=== PATIENT | female | born 1965 | race Caucasian/White ===

== ENCOUNTER 2019-06-19 15:10 | Outpatient (CLI) | payer BC, SELFPAY ==
--- NOTE | 2019-06-19 15:26 | MM_ITS ---
WS: [id number] Bilateral screening digital mammogram, 06/19/2019 Clinical Data: SCREENING Comparison: 06/14/2017, 05/12/2016, 04/14/2015, 09/13/2012, 08/24/2010, 09/11/2008. Findings: The breast parenchymal pattern shows fat replacement. No spiculated masses or clustered calcification s are seen. There are no secondary signs of carcinoma. MM/[id number] Impression: 1. Negative bilateral mammogram unchanged. 2. Recommend annual screening mammograms. BIRADS: 0-Incomplete: Need additional imaging evaluation FOLLOW UP: 1 Year Follow-up The CAD amusement or recreation card checker was used.
== END 2019-06-19 15:11 | disposition home or self-care (01) ==
LOC: RADSHAW 15:18
PROVIDERS: Family Provider Family Medicine; PCP Family Medicine; Visit Provider Family Medicine
DX: Z12.31 Encounter for screening mammogram for malignant neoplasm of breast (principal)
CPT/HCPCS: 77067

== ENCOUNTER 2019-09-11 06:41 | Day surgery (SDC) | payer BC, SELFPAY ==
[2019-09-10 10:06] VITALS: BMI 33.3
[2019-09-11 07:12] VITALS: BP 139/72; PULSE 72; RESP 18; TEMP 36.3; O2SAT 99
[2019-09-11] MEDS: sodium chloride 0.9% 1,000 ML 30 ML IV (07:19)
--- NOTE | 2019-09-11 08:05 | ANES.PREANE2 ---
Pre-Anesthetic Assessment Pre-Anesthetic Assessment: Height/Weight: Height 1.65 m Weight 90.718 kg Temp Pulse Resp BP Pulse Ox 97.4 F L 72 18 139/72 99 09/11/19 07:12 09/11/19 07:12 09/11/19 07:12 09/11/19 07:12 09/11/19 07:12 Preop Diagnosis: screening Proposed Procedure: Operation Date: 09/11/19 08:10 Proposed Procedures p Colonoscopy(Not Applicable) - Héctor Hanson MD Was Beta Ling taken within 24 hours: N/A Last intake: Intake Last Liquid Date 09/10/19 Last Liquid Time 22:00 Last Solid Date 09/09/19 Last Solid Time 20:00 Social: Social History: No alcohol and No tobacco Exam: Pre-Anes Outpt Exam: alert, oriented x 3, clear to auscultation bilaterally and regular rate & rhythm Airway: Submandibular: WNL Cervical ROM: WNL MP: 2 History/ROS: No significant history except as noted Pulmonary: Pulmonary: None reported CV/HEM: CV/HEM: None reported : : None reported Hepatic: Hepatic: None reported GI: GI: None reported Metabolic: Metabolic: None reported Musc/skel: Musc/skel: None reported Neuropsych: Neuropsych: Anxiety Anesthetic Plan: ASA status: 2 Anesthesia: Anesthesia Evaluation and MAC Risk of > 500 ml blood loss (7ml/kg in children): No Meds/Allergies Current Medications: Current Medications Generic Name Dose Route Start Last Admin Trade Name Freq PRN Reason Stop Dose Admin Sodium Chloride 1,000 mls @ 30 ml s/hr 09/11/19 07:15 09/11/19 07:19 Sodium Chloride 0.9% IV 09/12/19 07:14 30 mls/hr .Q24H BOOKER Administration Data Anesthesia Cardiac Studies: No Data to Display
--- NOTE | 2019-09-11 08:34 | PM.OPSURHP ---
Providers/Chief Complaint Primary Care Provider: Estrellita Padilla MD Chief Complaint: Screening colonoscopy History of Present Illness The patient denies abdominal pain, nausea, vomiting, loss of appetite, change in bowel habits, blood in stools, weight loss, constipation or diarrhea. The patient has no family history of colon cancer and has never had a colonoscopy before. Review of Systems General: Reports: 10 or more systems reviewed and unremarkable except in HPI and below Medications/Allergies Home Medications Medication Instructions Recorded Confirmed Last Taken Type acyclovir 800 mg tablet 400 mg PO DAILY tab 06/12/19 09/11/19 09/09/19 History bupropion HCl 150 mg 24 hr tablet, 150 mg PO QAM 06/12/19 09/11/19 09/09/19 History extended release cyanocobalamin (vitamin B-12) 2,500 mcg PO DAILY 06/12/19 09/11/19 Unknown History 2,500 mcg tablet estradiol 1 mg tablet 1 mg PO DAILY 06/12/19 09/11/19 09/10/19 History multivitamin 1 cap PO DAILY 06/12/19 09/11/19 09/10/19 History naproxen 500 mg tablet 500 mg PO BID 06/12/19 09/10/19 Unknown History prednisolone acetate 1 % eye 1 drop OPHTHALMIC (EYE) DAILY ml 06/12/19 09/11/19 09/10/19 History drops,suspension venlafaxine 75 mg capsule,extended 75 mg PO DAILY 06/12/19 09/11/19 09/10/19 History release 24 hr Allergies Allergy/AdvReac Type Severity Reaction Status Date / Time hydrocodone AdvReac ADR-Itching Verified 06/12/19 15:08 PFSH PFSH: Medical History Depression Surgical History Status post colonoscopy (09/11/19) Repeat in 10 years Vital Signs Vitals Signs: Last Vital Signs Temp 97.4 F L 09/11/19 07:12 Pulse 72 09/11/19 07:12 Resp 18 09/11/19 07:12 BP 139/72 09/11/19 07:12 Pulse Ox 99 09/11/19 07:12 Weight: Weight last 48 hrs Weight 200 lb Physical Exam Narrative: EXAM NARRATIVE: HEENT: Normocephalic Eye: Sclera /conjunctiva normal Respiratory and chest: Bilateral clear breath sounds on auscultation Cardiovascular: Normal S1 and S2 heart sounds Abdomen: Soft to palpation Neurological: Oriented to place person and time Skin: Intact, no lesions appreciated on gross exam A&P Assessment and plan (1) Encounter for screening colonoscopy: The patient is scheduled for colonoscopy under MAC. The procedure risks and benefits, including infection, bleeding and bowel injury, has been explained to the patient, who has consented to the procedure. Information about the prep has been provided to the patient. Status: Resolved Coding Level of Care Code Acute Trailer Park Manager for Chg Fwd Diagnoses Encounter for screening colonoscopy Z12.11
[2019-09-11 08:35] VITALS: BP 125/82; PULSE 86; RESP 16; TEMP 36.3
[2019-09-11 08:50] VITALS: BP 135/83; PULSE 64; RESP 18; TEMP 36.4; O2SAT 98
== END 2019-09-11 09:10 | disposition home or self-care (01) ==
PROVIDERS: PCP Family Medicine; Visit Provider Surgery
PROC: 0DJD8ZZ Inspection of Lower Intestinal Tract, Via Natural or Artificial Opening Endoscopic (ICD-10-PCS; CPT 45378; principal; 2019-09-11 08:10)
DX: Z12.11 Encounter for screening for malignant neoplasm of colon (principal); F41.9 Anxiety disorder, unspecified; Z79.1 Long term (current) use of non-steroidal anti-inflammatories (NSAID); F32.9 Major depressive disorder, single episode, unspecified
CPT/HCPCS: 12345; 45378; J2704; J7030

== ENCOUNTER → 2019-11-01 15:11 | Outpatient (BNVA) | payer BC, SELFPAY | PROVIDERS: PCP Family Medicine; Visit Provider Dermatology | DX: R20.2 Paresthesia of skin (principal); L60.3 Nail dystrophy; L91.8 Other hypertrophic disorders of the skin; Z12.83 Encounter for screening for malignant neoplasm of skin | CPT/HCPCS: 99203 ==

== ENCOUNTER → 2019-11-20 14:16 | Outpatient (BNVA) | payer BC, SELFPAY | PROVIDERS: PCP Family Medicine; Visit Provider Dermatology | DX: L60.3 Nail dystrophy (principal); D48.9 Neoplasm of uncertain behavior, unspecified | CPT/HCPCS: 11755; 88304; 88305; 88311 ==

== ENCOUNTER → 2019-12-03 15:07 | Outpatient (BNVA) | payer BC, SELFPAY | PROVIDERS: PCP Family Medicine; Visit Provider Dermatology | DX: L60.3 Nail dystrophy (principal) | CPT/HCPCS: 99212; 99213 ==

== ENCOUNTER → 2020-01-02 07:38 | Outpatient (BNVA) | payer BC, SELFPAY | PROVIDERS: PCP Family Medicine; Visit Provider Dermatology | DX: L60.3 Nail dystrophy (principal); M79.645 Pain in left finger(s); L92.3 Foreign body granuloma of the skin and subcutaneous tissue | CPT/HCPCS: 11730; 88304 ==

== ENCOUNTER → 2020-04-29 14:25 | Outpatient (BNVA) | payer BC, SELFPAY | PROVIDERS: PCP Family Medicine; Visit Provider Nurse Practitioner Family | DX: Z20.828 Contact with and (suspected) exposure to other viral communicable diseases (principal) | CPT/HCPCS: 87426 ==

== ENCOUNTER 2020-07-04 09:00 | Outpatient (CLI) | payer BC, SELFPAY ==
--- NOTE | 2020-07-04 09:04 | MM_ITS ---
WS: [id number] Bilateral screening digital mammogram, 07/04/2020 Clinical Data: SCREENING Comparison: 06/19/2019, 06/14/2017, 05/12/2016, 04/14/2015, 09/13/2012, 08/24/2010, 09/11/2008. Findings: The breast parenchymal pattern shows fat replacement. No spiculated masses or clustered calcification s are seen. There are no secondary signs of carcinoma. MM/[id number] Impression: 1. Negative bilateral mammogram unchanged. 2. Recommend annual screening mammograms. BIRADS: 1-Negative FOLLOW UP: 1 Year Follow-up The CAD loading checker was used.
== END 2020-07-04 09:01 | disposition home or self-care (01) ==
LOC: RADSHAW 09:02
PROVIDERS: PCP Nurse Practitioner Family; Visit Provider Nurse Practitioner Family
DX: Z12.31 Encounter for screening mammogram for malignant neoplasm of breast (principal)
CPT/HCPCS: 77067

== ENCOUNTER → 2020-08-22 12:19 | Outpatient (BNVA) | payer BC, SELFPAY | PROVIDERS: PCP Nurse Practitioner Family; Visit Provider Surgery | DX: Z01.812 Encounter for preprocedural laboratory examination (principal); Z20.822 Contact with and (suspected) exposure to COVID-19 | CPT/HCPCS: 87635 ==

== ENCOUNTER 2020-08-27 07:13 | Day surgery (SDC) | payer BC, OTHER, SELFPAY ==
[2020-08-25 13:49] VITALS: BMI 38.9
--- NOTE | 2020-08-27 07:44 | ANES.PREANE2 ---
Pre-Anesthetic Assessment Pre-Anesthetic Assessment: Height/Weight: Height 1.65 m Weight 106.141 kg Preop Diagnosis: screening Proposed Procedure: Operation Date: 08/27/20 08:45 Proposed Procedures p EGD 78146 r11.10(Not Applicable) - Deepak Beck MD Familial anesthetic complications: occassional PONV Was Beta Ling taken within 24 hours: N/A Was Clonidine taken within 24 hours: N/A Last intake: > 8 hrs Social: Social History: No alcohol and No tobacco Exam: Pre-Anes Outpt Exam: alert, oriented x 3, clear to auscultation bilaterally and regular rate & rhythm Airway: Cervical ROM: WNL MP: 4 Dentition: Full Additional comments: large tongue GI: GI: GERD Metabolic: Metabolic: Morbid obesity Anesthetic Plan: ASA status: 2 Anesthesia: MAC Risk of > 500 ml blood loss (7ml/kg in children): No PFSH Anesthesia PFSH: Medical History Depression Dystrophia unguium Surgical History Status post colonoscopy (09/11/19) Repeat in 10 years Family History Mother Diabetes Father Diabetes Hypertension Other Dementia Denies family history of Anesthesia complication Bleeding disorder Cancer Social History Smoking and tobacco status: never smoked Alcohol intake: never History of recent travel: Yes Female Reproductive History: Date of last menstrual period: 08/22/13 Data Anesthesia Cardiac Studies: No Data to Display
[2020-08-27 08:45] VITALS: BP 149/98; PULSE 71; RESP 18; TEMP 36.6; O2SAT 98
[2020-08-27] MEDS: sodium chloride 0.9% 1,000 ML 30 ML IV (08:53)
--- NOTE | 2020-08-27 09:28 | P.HP_ITS ---
Same Day Surgery H&P Indication for Procedure/HPI DATE OF PROCEDURE: August 27, 2020 CHIEF COMPLAINT/INDICATIONFOR SURGICAL PROCEDURE: Food regurgitation and anorexia PREOP DIAGNOSIS: screening PLANNED PROCEDRUE: Operation Date: 08/27/20 08:45 Proposed Procedures p EGD 66137 r11.10(Not Applicable) - Deepak Beck MD This is a pleasant 55 years old female patient with history of class II obesity and a current BMI of 39.1 and weighs 235 pounds. Patient is referred to my practice to consider and discuss further weight loss surgery as an option for obesity management that she has been struggling with and affecting her daily life activities and quality of life. Obesity related comorbidities In the form of regurgitation and anorexia.History of facial and ophthalmic shingles and patient had recent eye surgery and she has been on corticosteroid eyedrops. In addition to history of dystrophia Unguium. Previous Bariatric surgery N/A Patient has been struggling with weight and has tried different modalities without obvious success including but not limited to Medical treatment in the form of Phntermine and made her very anxious she needed to be off that. Diet history: Patient reports that she has tried different types of diet, patient comes today showing interest in Bariatric surgery as a sustained option for obesity management Support system at home,Patient has been supporting spouse,were he comes today escorting Ms. Herman History of cancer screening age-appropriate Patient had screening colonoscopy last year September 2019and was reported as normal Interim history 08/27/2020 Patient comes today for planned diagnostic EGD ROS All systems have been reviewed negative except as per the above or per problem list Medications/Allergies* Home Medications Medication Instructions Recorded Confirmed Type acyclovir 800 mg tablet 400 mg PO DAILY tab 06/12/19 08/25/20 History bupropion HCl 150 mg 24 hr tablet, 150 mg PO QAM 06/12/19 08/25/20 History extended release cyanocobalamin (vitamin B-12) 2,500 mcg PO DAILY 06/12/19 08/25/20 History 2,500 mcg tablet estradiol 1 mg tablet 1 mg PO DAILY 06/12/19 08/25/20 History multivitamin 1 cap PO DAILY 06/12/19 08/25/20 History naproxen 500 mg tablet 500 mg PO BID 06/12/19 08/25/20 History prednisolone acetate 1 % eye 1 drop OPHTHALMIC (EYE) DAILY ml 06/12/19 08/25/20 History drops,suspension venlafaxine 75 mg capsule,extended 150 mg PO DAILY cap 07/17/20 08/25/20 History release 24 hr Allergies/Adverse Reactions Allergy/AdvReac Type Severity Reaction Status Date / Time hydrocodone AdvReac ADR-Itching Verified 08/27/20 09:32 Current Medications: Generic Name Dose Route Start Last Admin Trade Name Freq PRN Reason Stop Dose Admin Sodium Chloride 1,000 mls @ 30 mls/hr 08/27/20 08:00 08/27/20 08:53 Sodium Chloride 0.9% IV 08/28/20 07:59 30 mls/hr .Q24H BOOKER Administration Pertinent History/Comorbid Conditions* Medical History (Updated 07/19/20 @ 15:30 by Deepak Beck MD) Depression Dystrophia unguium Surgical History (Updated 09/11/19 @ 08:34 by Héctor Hanson MD) Status post colonoscopy (09/11/19) Repeat in 10 years Family History (Updated 06/12/20 @ 15:58 by Deandra Ling RN) Diabetes Mother Father Dementia Hypertension Father Denies family history of Anesthesia complication Bleeding disorder Cancer Social History Smoking and tobacco status: never smoked Alcohol intake: never History of recent travel: Yes Pertinent Exam Findings alert, oriented x 3, clear to auscultation bilaterally, regular rate & rhythm and procedure specific exam findings (Abdominal examination nontender nondistended soft obese) Recommendations Surgery/Procedure today (Diagnostic EGD) Other Plans: Plan of care; After thorough history and physical examination and reviewing the chart, plan to perform a diagnostic esophagogastroduodenoscopy with possible biopsy in the GI lab. I discussed with the patient in detail the risk,benefits,alternatives and indications.The risk of aspiration, bleeding, soft tissue injury, perforation of the stomach/esophagus and other potential concomitant complications were explained to the patient in details,aslo the potential need for Thoracic and or Abdominal surgery to repair any complications.The patient understood this well and did agree to proceed. Rationale was carefully and clearly discussed with the patient.Appropriate informed consent have been reviewed and signed All questions have been answered and all concerns have been addressed to patient's satisfaction. Coding Level of Care Code Acute Aircraft Quality Control Inspector for Kourtney Gomez
[2020-08-27 09:51] VITALS: BP 153/88; PULSE 71; RESP 18; TEMP 36.7; O2SAT 98
--- NOTE | 2020-08-27 09:54 | ANE.PACU2 ---
Inpatient post-anesthesia follow up: Airway intact: Yes Vital signs: Temperature 98.1 F Pulse Rate 71 Respiratory Rate 18 Blood Pressure 153/88 Pulse Oximetry 98 Oxygen Delivery Me thod Room Air Oxygen Flow Rate Fraction of Inspir ed Oxygen Hydration adequate: Yes Nausea and vomiting: No Pain level: 1 Mental status: Baseline
[2020-08-27 10:06] VITALS: BP 149/90; PULSE 70; RESP 18; TEMP 36.9; O2SAT 98
[2020-08-28 06:30] LABS: H. Pylori / CLO Test Negative
== END 2020-08-27 10:17 | disposition home or self-care (01) ==
PROVIDERS: PCP Nurse Practitioner Family; Visit Provider Surgery
PROC: 0DJ08ZZ Inspection of Upper Intestinal Tract, Via Natural or Artificial Opening Endoscopic (ICD-10-PCS; CPT 43235; principal; 2020-08-27 08:45)
DX: R11.10 Vomiting, unspecified (principal); R63.0 Anorexia; K29.70 Gastritis, unspecified, without bleeding; Z68.38 Body mass index [BMI] 38.0-38.9, adult; F32.9 Major depressive disorder, single episode, unspecified; Z82.49 Family history of ischemic heart disease and other diseases of the circulatory system; Z83.3 Family history of diabetes mellitus; E66.01 Morbid (severe) obesity due to excess calories; K21.9 Gastro-esophageal reflux disease without esophagitis
CPT/HCPCS: 43239; 87077; 96360; J7030

== ENCOUNTER 2020-12-18 11:07 | Outpatient (CLI) | payer BC, SELFPAY ==
[2020-12-18 11:30] LABS: Basophils # 0.1 10^3/uL (0.0-0.1); Basophils % 0.8 %; Eosinophils # 0.1 10^3/uL (0.0-0.8); Eosinophils % 2.2 %; Hematocrit 41.3 % (37.0-47.0); Hemoglobin 13.3 g/dL (11.5-15.3); Lymphocytes # 1.7 10^3/uL (0.8-4.8); Mean Corpuscular HGB Conc 32.2 g/dL (30.0-36.0); Mean Corpuscular Hemoglobin 30.8 pg (28.0-34.0); Mean Corpuscular Volume 95.6 fl (81-99); Mean Platelet Volume 9.4 fL (7.4-10.4); Monocytes # 0.4 10^3/uL (0.2-0.9); Monocytes % 6.5 %; Neutrophils # 4.08 10^3/uL (1.8-7.7); Neutrophils % 64.3 %; Nucleated Red Blood Cells % 0 %; Platelet Count 294 10^3/cmm (130-400); Red Blood Count 4.32 10^6/uL (4.1-5.3); Red Cell Distribution Width 13.1 % (12.1-15.1); White Blood Count 6.3 10^3/uL (4.0-10.0)
[2020-12-18 12:11] LABS: Calcium 9.1 mg/dL (8.5-10.5)
[2020-12-18 12:12] LABS: Parathyroid Hormone 62.7 pg/mL (15-65)
[2020-12-18 12:29] LABS: Alanine Aminotransferase 35 U/L (0-33); Albumin Level 4.3 g/dL (3.5-5.2); Alkaline Phosphatase 76 IU/L (35-105); Anion Gap 15.2 (5-19); Aspartate Amino Transferase 27 U/L (0-32); Blood Urea Nitrogen 12 mg/dL (6-20); Calcium 9.2 mg/dL (8.5-10.5); Carbon Dioxide 26 mmol/L (22-29); Chloride 101 mmol/L (98-107); Chol HDL Ratio 2.26 mg/dL (0.0-4.40); Cholesterol 183 mg/dL (0-200); Ferritin 193 ng/mL (15-150); Globulin 3.1 g/dL (1.3-4.6); Glomerular Filtration Rate 87.5 mL/min (90-130); Glucose 74 mg/dL (65-115); HDL Cholesterol 81 mg/dL (60-100); Iron 89 ug/dL (37-145); LDL Cholesterol Calculated 84 mg/dL (50-129); LDL HDL Ratio 1.04 RATIO (0.00-3.22); Magnesium 2.2 mg/dL (1.7-2.3); Osmolality Calculated 284 mOsm/kg (285-295); Percent Saturation 28.6 % (20-50); Phosphorus 2.7 mg/dL (2.5-4.5); Potassium 4.2 mmol/L (3.5-5.1); Sodium 138 mmol/L (136-145); Thyroid Stimulating Hormone 1.29 uIU/mL (0.27-4.20); Total Bilirubin 0.4 mg/dL (0.15-1.2); Total Iron Binding Capacity 311 mcg/dl; Total Protein 7.4 g/dL (6.6-8.7); Triglycerides 89 mg/dL (0-150); Unsaturated Iron Binding 222 ug/dL (112-347); Vitamin B12 920 pg/mL (232-1245)
[2020-12-18 12:31] LABS: Folate Level 19.1 ng/mL (4.8-37.3)
[2020-12-18 14:04] LABS: INR 0.99 (0.8-1.2)
== END 2020-12-18 11:08 | disposition home or self-care (01) ==
LOC: LAB 11:11
PROVIDERS: PCP Nurse Practitioner Family; Visit Provider Surgery
DX: E88.81 Metabolic syndrome and other insulin resistance (principal)
CPT/HCPCS: 80053; 80061; 82310; 82607; 82728; 82746; 83540; 83550; 83735; 83970; 84100; 84443; 85025; 85610; 87635

== ENCOUNTER 2020-12-23 14:27 | Observation (INO) | payer SELFPAY ==
[2020-12-19 08:33] VITALS: BMI 36.2
--- NOTE | 2020-12-19 08:55 | ANES.PREANE2 ---
Pre-Anesthetic Assessment Pre-Anesthetic Assessment: Height/Weight: Height 1.65 m Weight 98.883 kg Preop Diagnosis: screening Proposed Procedure: Operation Date: 12/23/20 12:05 Proposed Procedures p Laparoscopic Gastric Sleeve w/ EGD [id number] E66.01(Not Applicable) - Deepak Beck MD Was Beta Ling taken within 24 hours: N/A Was Clonidine taken within 24 hours: N/A Social: Social History: No alcohol and No tobacco Exam: Pre-Anes Outpt Exam: alert, oriented x 3, clear to auscultation bilaterally and regular rate & rhythm Airway: Submandibular: WNL Cervical ROM: WNL MP: 2 Dentition: Full GI: GI: GERD Metabolic: Metabolic: Morbid obesity Neuropsych: Neuropsych: Anxiety and Depression Anesthetic Plan: ASA status: 3 Anesthesia: General Other: PONV Risk of > 500 ml blood loss (7ml/kg in children): No PFSH Anesthesia PFSH: Medical History Depression Dystrophia unguium Gastric ulcer Surgical History History of hysterectomy History of lateral meniscus repair of right knee History of right cataract surgery (~06/2020) History of rotator cuff surgery (~1999) History of tubal ligation Status post colonoscopy (09/11/19) Repeat in 10 years Family History Mother Diabetes Father Diabetes Hypertension Other Dementia Denies family history of Anesthesia complication Bleeding disorder Cancer Social History Alcohol intake: never History of recent travel: Yes Female Reproductive History: Date of last menstrual period: 08/22/13 Data Anesthesia Cardiac Studies: No Data to Display
[2020-12-23] VITALS (20 sets, daily range): BP systolic 114–160; BP diastolic 53–117; PULSE 70–97; RESP 16–20; TEMP 36.2–37.3; O2SAT 91–100; BMI 36.1
[2020-12-23] MEDS: heparin 5,000 unit/mL INJ 1 mL 5000 UNIT SUBCUT (11:24)
[2020-12-23] MEDS: sodium chloride 0.9% 1,000 ML 999 ML IV (11:27)
[2020-12-23] MEDS: scopolamine 1.5 Patch 1 PATCH TRANSDERMA (11:43)
[2020-12-23] MEDS: pantoprazole 40 mg SDV IVP (11:44)
--- NOTE | 2020-12-23 11:47 | W.PM.OPSUD ---
Surgery/Procedure H&P Update DATE OF PROCEDURE: December 23, 2020 DATE H&P PERFORMED: 12/03/20 H&P UPDATE INFORMATION: I have reviewed H&P completed within last 30 days, I have examined patient prior to procedure and Changes to prior documentation as noted here CHANGES TO PREVIOUS DOCUMENTATION: Patient lost 12 pounds on liquid protein diet PREOP DIAGNOSIS: Obesity PRIMARY INDICATION FOR PROCEDURE: The same PLANNED PROCEDURE: Operation Date: 12/23/20 12:05 Proposed Procedures p Laparoscopic Gastric Sleeve w/ EGD [id number] E66.01(Not Applicable) - Deepak Beck MD
--- NOTE | 2020-12-23 11:51 | P.ANESUD_ITS ---
Pre-Anesthetic Update Pre-Anesthetic Assessment: Date of Surgery/Procedure: 12/23/20 Preop Joaquina gnosis: Obesity Proposed Procedure: Operation Date: 12/23/20 12:05 Proposed Procedures p Laparoscopic Gastric Sleeve w/ EGD [id number] E66.01(Not Applicable) - Deepak Beck MD Any changes to Pre-Anesthetic Assessment?: No Last Intake: Intake Last Liquid Date 12/23/20 Last Liquid Time 23:30 Last Solid Date 12/08/20 Last Solid Time 19:00 Vitals: Temperature 98.3 F 12/23/20 10:17 Temperature Source Temporal Artery S can 12/23/20 10:17 Pulse Rate 73 12/23/20 10:17 Pulse Rhythm 12/23/20 10:32 Pulse Strength 3+ Normal 12/23/20 10:32 Respiratory Rate 16 12/23/20 10:17 Blood Pressure 158/90 12/23/20 10:17 Blood Pressure Gracie n 112 12/23/20 10:17 Pulse Oximetry 97 12/23/20 10:17 Oxygen Delivery Me thod 12/23/20 10:32 Exam: Pre-Anes Outpt Exam: alert, oriented x 3 and clear to auscultation bilaterally Cardiac Studies: No Data to Display
[2020-12-23] MEDS: sodium chloride 0.9% 1,000 ML 30 ML IV (11:57)
--- NOTE | 2020-12-23 14:17 | P.OP_ITS ---
Operative Report Date of procedure: December 23, 2020 Pre-op Diagnosis: Obesity Post-op diagnosis: same Procedure Done: Laparoscopic vertical sleeve gastrectomy with intraoperative EGD Specimens removed/disposition: Subtotal gastrectomy with gastric sleeve, sutures marked proximal Surgeon: Deepak Beck E Learning Designer: Surgical techbi Lam and Merlyn Circulating nurses Lucie and Radha Anesthesia: General (public health internship is Juan Luis Maurice, Debbie and Zoila) Estimated blood loss (mL): 10 IV fluids (mL): 1,500 Urine output (mL): 500 Complications: No immediate complication Condition: stable Disposition: floor Brief History: Obesity Procedure: Patient was identified in holding area , appropriate pharmacologic DVT prophylaxis was given and preoperative IV fluid hydration, patient was then taken to the operating room where the patient was placed in supine position, intubated by anesthesia prophylactic antibiotics were given per protocol,Time- out was done verifying the patient's name/date of /planned procedure and destination after the procedure, all were in agreement.SCDs confirmed to be functioning, and beta ronnie protocol was confirmed. A Urbina catheter was inserted by the circulating nurse revealing clear urine. A foot board was applied to secure the patient while the patient is placed in reversed Trendelenburg, all pressure points were padded, and the patient was appropriately secured to the table, anesthesia was asked to rotate the table back and forth to verify that the patient is appropriately secured, and that was the case. The abdomen was prepped and draped under the usual sterile technique. A tra nsverse incision was made with a 15 blade scalpel approximately 15 cm below the xiphoid process and 3 cm left of the midline.A 5 mm optical trocar port was placed under direct vision into the peritoneal cavity without intial evidence of injury to peritoneal structures upon entry. The peritoneal cavity was insufflated with carbon dioxide gas up to 15 mmHg pressure.A 45? angle laparoscopy was placed through the port into the peritoneal cavity there was no significant blood, fluid, or evidence of intra-abdominal injury under direct visualization,Longer trocars were then used;a 12 mm trocar port was placed in the right epigastric region and a fourth 5 mm trocar port was placed in the mid epigastric region more caudad than and medial to the previous port. A 5 mm trocar port was placed in the left lateral flank and additional 5 mm trocar was inserted midway between the left lateral flank trocar and the initial 5 mm trocar. There after the index 5 mm trocar was switched to a 12 mm trocar u nder direct visualization after extending the skin incision. I lifted the omentum up to make sure there were no injuries encountered from the initial trocar insertion, the underlying transverse colon and small bowel viscera were normal. A subxiphoid stab incision was made and dissection into the peritoneum with 5 mm obturator. A grasping laparoscopic clamp was inserted through the incision cre ated and clamped to the right anastacia of the diaphragm to elevate The liver for the entirety of the case. All trocars inserted were long trocars due to the thicker layer of subcutaneous tissue that the patient has. Patient was then placed in the reversed Trendelenburg. Following this, the greater curvature of the stomach was freed from the omentum using the Enseal device.This division included the short gastric vessels proximally. This dissection was carried from approximately 4 cm-6 cm proximal to the pylorus and extending all the way up to the angle of Hiss. During this process the posterior aspect of the stomach was mobilized from the underlying peritoneum and the posterior aspect of the stomach was well exposed. With the greater curvature of the stomach exposed from within 4-6 cm of the pylorus and extending to the angle of Hiss, which also included the posterior stomach, a 40 Mexican standard template passed under direct vision down the esophagus, stomach, and into the first part of the duodenum by the anesthesia provider and under direct guidance and visualization by me,via the laparoscopy. Using the template 40 Mexican aligned along the lesser curvature of the stomach and all the way to the first part of the Duodenum,the 40 Mexican Bougie was used as a template the laparoscopic vertical gastric sleeve was performed starting from a point about 5 cm from the pylorus along the greater curvature.Using the [place] Laparoscopic ALESSIO linear cutting stapler with VoxPopMepath enforcement, a series of dian were used to transect the stomach in a vertical fashion along the left side of the template. Through the entire division of the stomach using the staplers,the template was always checked to be in good place and well aligned to the lesser curvature while dividing the stomach. This was carried all the way to the angle of Hiss.[place] 60 mm Green loads were used for the distal third of the stomach and Gold loads were used for the more proximal part of the stomach and then blue loads with reinforcement.All staplers were reinforced by Endopath. The staple line along the remaining tubularized stomach was tested for leaks and bleeding under direct vision as the 40 Mexican template was exchanged (and there was no evidence of blood on the tip of the template) by a standard diagnostic EGD via the mouth by my me after I scrubbed out, insufflation was achieved using CO2 gas and the staple line submerged under saline ,meanwhile a clamp was applied distally onto the end of the tubularized stomach to allow insufflation test for leak. There was no evidence of leak .There was adequate hemostasis along the staple line.EGD was taken out at this point after deflation of the tubularized stomach. The transected partial stomach, which included the greater curvature, was removed from the peritoneum through the first 12 mm trocar site, and was sent for permanent pathology.Prior to closure of the fascia. A final look laparoscopy identified no injuries or bleeding. Bilateral TAP (transversus abdominous plain peripheral nerve block )block using Exparel 20 mL Exparel 40 ml Normal saline 20 ml bupivacaine 0.25% 30 mL on each side injected 20 mL injected the port sites An interrupted #1 PDS suture on a granny needle suture passer was used to close the right epigastric and the other 12 mm trocar left of the midline fascial defects under direct visualization.The other trocars were removed under direct vision and no evidence of bleeding was identified. The pneumoperitoneum was decompressed.All skin incisions were irrigated with saline, then closed with dian, followed by application of sterile dressings.The patient was extubated and taken to the recovery room with normal vital signs. All counts of instruments,sponges and needles were completed at the end of the procedure I was present for the whole entire procedure
[2020-12-23] MEDS: ondansetron 2 mg/ML SDV 2 mL 4 MG IVP ×4 (14:29→21:56)
[2020-12-23] MEDS: HYDROmorphone 1 mg/mL INJ 1 mL 0.5 MG IVP ×2 (14:31→14:41)
[2020-12-23] MEDS: metoclopramide 5 mg/mL SDV 2 mL 10 MG IVP ×2 (14:35→14:40)
[2020-12-23] MEDS: famotidine 20 mg/2 mL INJ IVP (17:26)
[2020-12-23] MEDS: lactated ringers 1,000 ML 150 ML IV (17:32)
[2020-12-23] MEDS: morphine 4 mg/mL SDV 1 mL 2 MG IVP (22:31)
[2020-12-24] VITALS (10 sets, daily range): BP systolic 125–168; BP diastolic 78–88; PULSE 68–88; RESP 15–18; TEMP 36.6–37.3; O2SAT 93–95
[2020-12-24] MEDS: lactated ringers 1,000 ML 150 ML IV ×3 (00:30→17:02)
[2020-12-24 02:57] LABS: Hematocrit 37.5 % (37.0-47.0); Hemoglobin 12.1 g/dL (11.5-15.3)
[2020-12-24 03:22] LABS: Anion Gap 13.5 (5-19); Blood Urea Nitrogen 5 mg/dL (6-20); Carbon Dioxide 26 mmol/L (22-29); Chloride 99 mmol/L (98-107); Creatinine Clr Calc Pharmacy 151.1292; Glomerular Filtration Rate 129.1 mL/min (90-130); Glucose 117 mg/dL (65-115); Osmolality Calculated 276 mOsm/kg (285-295); Potassium 4.5 mmol/L (3.5-5.1); Sodium 134 mmol/L (136-145)
--- NOTE | 2020-12-24 04:23 | PC.NURSE ---
AMBULATION Ambulated short distance in the evening. Had some nausea after that walk. Now ambulated 200 ft with nurse and tolerated very well. Up to chair after ambulation
[2020-12-24] MEDS: heparin 5,000 unit/mL INJ 1 mL 5000 UNIT SUBCUT ×3 (05:59→21:37)
[2020-12-24] MEDS: famotidine 20 mg/2 mL INJ IVP ×2 (05:59→17:15)
--- NOTE | 2020-12-24 06:05 | PM.PN ---
Subjective Subjective: Interval history: Overall patient is doing well, does complain of some soreness at the incision sites. Adequate urine output, otherwise no acute events overnight Medications: Reviewed: Yes Vitals/I&O/Wt Last Vital Signs Temp 98.7 F 12/24/20 03:46 Pulse 88 12/24/20 03:46 Resp 16 12/24/20 03:46 BP 142/83 12/24/20 03:46 Pulse Ox 93 12/24/20 03:46 12/23/20 12/23/20 12/24/20 14:59 22:59 06:59 Intake Total 2860 / 2860 1000 / 3860 Output Total 1010 / 1010 2550 / 3560 600 / 4160 Balance 1850 / 1850 -2550 / -700 400 / -300 Weight last 48 hrs Weight 217 lb Weight 217 lb Physical Exam Narrative: EXAM NARRATIVE: Patient is conscious alert oriented X3 BMI 36.1 Head and neck examination PERRLA no masses no cervical lymphadenopathy no jaundice Cardiac examination audible S1-S2 no murmurs no gallops no arrhythmias Chest is clear bilateral,abscence of Rhonchi or wheezes,no surgical emphysema Abdomen nontender except at the incision sites nondistended soft no organomegaly guarding or rigidity/no signs of peritonitis. Dressing in place Extremities no cyanosis no clubbing no edema Urbina catheter in place with clear urine Urinary Catheter Management^: Urbina: Cath Placed During This Visit: yes Reason for Continuing Indwelling Catheter: Perioperative Use in Selected Surgeries Urinary Catheter Date of Insertion: 12/23/20 Urinary Catheter Time of Insertion: 12:30 Data : 12/24/20 02:49 12/24/20 02:49 A&P Assessment and plan (1) Status post laparoscopic sleeve gastrectomy: 55 years old female patient status post laparoscopic vertical sleeve gastrectomy 12/23/2020 Plan Keep n.p.o. till upper GI study is done, will follow on that once it is cleared we will start the patient on post bariatric surgery phase 1. Incentive spirometer every hour DC Urbina catheter Encourage ambulation A.m. labs are appropriate Assurance and education All questions have been answered and all concerns have been addressed to patient's satisfaction. Status: Acute Attestations Medical Necessity Statement*: Patient requiring inpatient hospitalization passing 2 midnights for perioperative bariatric surgery care Time Spent in Patient Care: (>than 50% of time spent in counselling and/or direct pt care on unit). Coding Level of Care Code Acute Bilingual Call Center Representative for Chg Fwd Diagnoses Status post laparoscopic sleeve gastrectomy Z98.84
[2020-12-24] MEDS: acetaminophen 1,000 MG/100 ML PIGGYBACK 400 MG IV ×2 (07:38→20:04)
--- NOTE | 2020-12-24 07:51 | ANE.PACU2 ---
Inpatient post-anesthesia follow up: Airway intact: Yes Vital signs: Temperature 98.7 F Pulse Rate 88 Respiratory Rate 16 Blood Pressure 142/83 Pulse Oximetry 93 Oxygen Delivery Me thod Room Air Oxygen Flow Rate 2 Fraction of Inspir ed Oxygen Hydration adequate: Yes Nausea and vomiting: No Pain level: 2 Mental status: Baseline
--- NOTE | 2020-12-24 08:00 | FL_ITS ---
WS: [id number] UPPER GI TECHNICAL: Single contrast limited upper GI with Gastrografin FLUOROSCOPY TIME: 1.5 minutes CLINICAL INFORMATION: Status Post Gastric Sleeve COMPARISON: None. FINDINGS: Status post recent gastric sleeve procedure. Normal filling of the gastric sleeve. No evidence of con trast leak. Normal filling of the duodenal C-loop. No other suspicious findings. FL/FL upper GI series [id number] IMPRESSION: Status post gastric sleeve with no evidence of contrast leak.
[2020-12-24] MEDS: promethazine 25 mg/mL SDV 1 mL 12.5 MG IM (09:45)
[2020-12-24] MEDS: diatrizoate meglumine 120 mL Sol PO (10:15)
[2020-12-24] MEDS: morphine 4 mg/mL SDV 1 mL 2 MG IVP ×3 (10:42→17:40)
[2020-12-25] VITALS (7 sets, daily range): BP systolic 144–168; BP diastolic 77–100; PULSE 67–81; RESP 17–20; TEMP 36.7–37.3; O2SAT 92–99
[2020-12-25] MEDS: lactated ringers 1,000 ML 100 ML IV (02:30)
[2020-12-25 02:35] LABS: Hematocrit 37.6 % (37.0-47.0); Hemoglobin 12.1 g/dL (11.5-15.3)
[2020-12-25 02:56] LABS: Anion Gap 11.9 (5-19); Blood Urea Nitrogen 6 mg/dL (6-20); Calcium 8.9 mg/dL (8.5-10.5); Carbon Dioxide 29 mmol/L (22-29); Chloride 103 mmol/L (98-107); Creatinine Clr Calc Pharmacy 151.1292; Glomerular Filtration Rate 129.1 mL/min (90-130); Glucose 104 mg/dL (65-115); Osmolality Calculated 288 mOsm/kg (285-295); Potassium 3.9 mmol/L (3.5-5.1); Sodium 140 mmol/L (136-145)
[2020-12-25] MEDS: diphenhydrAMINE 50 mg/mL SDV 1mL 12.5 MG IVP (04:13)
[2020-12-25] MEDS: acetaminophen 1,000 MG/100 ML PIGGYBACK 400 MG IV (04:14)
[2020-12-25] MEDS: oxyCODONE 5 mg IR Tab/Cap PO ×2 (04:15→11:29)
[2020-12-25] MEDS: famotidine 20 mg/2 mL INJ IVP (05:56)
[2020-12-25] MEDS: heparin 5,000 unit/mL INJ 1 mL 5000 UNIT SUBCUT ×2 (06:00→15:38)
--- NOTE | 2020-12-25 07:38 | PM.PN ---
Subjective Subjective: Interval history: Patient overall feels better and has been having her pain under control with oral pain medications. No acute events overnight. Adequate urine output. Blood work is appropriate. Medications: Reviewed: Yes Vitals/I&O/Wt Last Vital Signs Temp 99.2 F 12/25/20 04:00 Pulse 75 12/25/20 05:53 Resp 20 H 12/25/20 04:15 BP 156/82 12/25/20 04:00 Pulse Ox 95 12/25/20 04:00 12/24/20 12/25/20 12/25/20 22:59 06:59 14:59 Intake Total 1100 / 2200 1220 / 3420 Balance 1100 / 2200 1220 / 3420 Weight last 48 hrs Weight 217 lb Weight 217 lb Physical Exam Narrative: EXAM NARRATIVE: Patient is conscious alert oriented X3 BMI 36.1 Head and neck examination PERRLA no masses no cervical lymphadenopathy no jaundice Cardiac examination audible S1-S2 no murmurs no gallops no arrhythmias Chest is clear bilateral,abscence of Rhonchi or wheezes,no surgical emphysema Abdomen nontender except at the incision sites nondistended soft no organomegaly guarding or rigidity/no signs of peritonitis. Skin dian in place Extremities no cyanosis no clubbing no edema Urinary Catheter Management^: Urbina: Cath Placed During This Visit: yes Reason for Continuing Indwelling Catheter: Perioperative Use in Selected Surgeries Urinary Catheter Date of Insertion: 12/23/20 Urinary Catheter Time of Insertion: 12:30 Data : 12/25/20 02:26 12/25/20 02:26 Attestation for Other Data: I personally reviewed and interpreted the following: (There is no evidence of extravasation or strictures and normal looking surgical changes status post laparoscopic vertical sleeve gastrectomy) Other data: Status post recent gastric sleeve procedure. Normal filling of the gastric sleeve. No evidence of contrast leak. Normal filling of the duodenal C-loop. No other suspicious findings. FL/FL upper GI series [id number] IMPRESSION: Status post gastric sleeve with no evidence of contrast leak. A&P Assessment and plan (1) Status post laparoscopic sleeve gastrectomy: 55 years old female patient status post laparoscopic vertical sleeve gastrectomy 12/23/2020 Plan Continue stage I post bariatric surgery diet Hep-Lock IV fluids Switch to p.o. pain medications and wean off IV pain medication If patient continues to do well we will plan to discharge home today Assurance and education All questions have been answered and all concerns have been addressed to patient's satisfaction. Status: Acute Attestations Medical Necessity Statement*: Patient requiring inpatient hospitalization passing 2 midnights for perioperative bariatric surgery care Time Spent in Patient Care: (>than 50% of time spent in counselling and/or direct pt care on unit). Coding Level of Care Code Acute Director Loss Prevention for Chg Fwd Diagnoses Status post laparoscopic sleeve gastrectomy Z98.84
--- NOTE | 2020-12-25 10:44 | P.DS_ITS ---
Discharge Providers Date of Admission: 12/23/20 14:27 Date of Discharge: December 25, 2020 Attending Provider at Admission: Deepak Beck MD Attending Provider at Discharge: Deepak Beck MD Primary Care Provider: Latisha Bridges Diagnoses at Discharge Discharge Diagnosis (1) Status post laparoscopic sleeve gastrectomy: Reason for Visit Reason for Visit: Lap Gastric Sleeve and EGD Hospital Course Hospital Course Patient undergone uneventful laparoscopic vertical sleeve gastrectomy. Postop eratively patient continued to have stable vital signs and pain medications in the form of parenteral form was administered for adequate pain control. Patient continues to have adequate urine output and Urbina catheter was taken out postoperative day 1. Patient undergone upper GI study that showed normal underlying surgical anatomy without complications of laparoscopic vertical sleeve gastrectomy. Patient was started on phase 1 post bariatric surgery diet and tolerated that, was kept for another night as an inpatient hospitalization for better pain control and to make sure that the patient has appropriate oral intake. Patient continues to do well with repeat labs H&H were stable otherwise insignificant blood work. IV fluids were hep-locked and pain medications were switched to oral. Patient met the appropriate criteria for discharge home safely. Physical Exam Urinary Catheter Management^: Urbina: Cath Placed During This Visit: yes Reason for Continuing Indwelling Catheter: Perioperative Use in Selected Surgeries Urinary Catheter Date of Insertion: 12/23/20 Urinary Catheter Time of Insertion: 12:30 Discharge Data Data Completed and Pending: Completed Studies During Hospitalization Category Date Time [place] [id number] Routine Exams 12/24/20 08:00 Completed Pending at discharge Category Date Time Status ES surgery / GI i mages Routine Exams 12/23/20 10:56 Taken Basic Metabolic P dina AM LABS Lab 12/26/20 04:00 Ordered Hemoglobin and He matocrit AM LABS Lab 12/26/20 04:00 Ordered Pathology: Surgic al [PTH] Routine Pth 12/23/20 14:29 Received Labs from last 24 hours 12/25/20 12/25/20 02:26 02:26 Hgb 12.1 Hct 37.6 Sodium 140 Potassium 3.9 Chloride 103 Carbon Dioxide 29 Anion Gap 11.9 BUN 6 Creatinine 0.5 GFR Calculation 129.1 Glucose 104 Calculated Osmolal ity 288 Calcium 8.9 Vitals: Last Vital Signs Temp 98.0 F 12/25/20 08:00 Pulse 67 12/25/20 08:00 Resp 17 12/25/20 08:00 BP 168/94 12/25/20 08:00 Pulse Ox 98 12/25/20 08:00 Discharge Plan Discharge Patient Disposition: Home Condition: Stable Prescriptions: New Transderm-Scop 1 mg over 3 days patch 3 day 1 patch transdermal Q3D PRN (Reason: nausea and vomiting) Qty: 4 RF: 1 oxycodone 5 mg tablet 5 mg PO Q6H PRN (Reason: pain) Qty: 28 RF: 0 Benadryl Allergy 12.5 mg/5 mL liquid 12.5 mg PO Q6H PRN (Reason: allergic reaction) Qty: 1000 RF: 1 Lovenox 30 mg/0.3 mL syringe 30 mg SUBCUT DAILY 10 Days RF: 0 Zofran 4 mg tablet 4 mg PO Q6H PRN (Reason: nausea and vomiting) Qty: 30 RF: 1 Continued acyclovir 800 mg tablet 400 mg PO DAILY RF: 0 bupropion HCl 150 mg tablet extended release 24 hr 150 mg PO QAM RF: 0 estradiol 1 mg tablet 1 mg PO DAILY RF: 0 prednisolone acetate 1 % drops,suspension 1 drop ophthalmic (eye) DAILY RF: 0 venlafaxine [Effexor XR] 75 mg capsule,extended release 24hr 150 mg PO DAILY RF: 0 acetaminophen 500 mg capsule 1,250 mg PO BID RF: 0 famotidine [Pepcid] 40 mg Tablet 40 mg PO DAILY RF: 0 loratadine 50 mg PO DAILY PRN (Reason: allergies) RF: 0 Discharge Orders: Discharge Order (Routine); Ordered 12/25/20 Ordered By: Deepak Beck Referrals: Latisha Bridges FNP [Primary Care Provider] - 12/30/20 1:30 pm (please call for appointment) Deepak Beck MD [Physician] - 12/29/20 9:10 am ([facility]ERY OFFICE IN ONE WEEK) Discharge Diet: As Directed Patient Instructions: Oxycodone/Acetaminophen (By mouth), Diphenhydramine (By mouth), Ondansetron (By mouth), Enoxaparin (Injection), Opioid Safety Activity Restrictions/Additional Instructions: ACTIVITY 1. Patient can shower after 48 hours from surgery 2. KEEP INCISIONS OPEN TO AIR 3. Up and walking as tolerated 4. Do NOT lift more than 5 pounds first 2 weeks after surgery and not more than 25 pounds 6 to 8 weeks after surgery. 5. Do not operate heavy machinery or drive while using pain medications. 6.Contact the office or return to the ER for worsening nausea vomiting fevers or chills, or noticing any redness around incision sites or discharge. DIET Stage 1 When do I start this stage? The day after your surgery (Day 1). You will get to start this stage after you pass the upper GI study and/or methylene blue test. How long will I be on this stage? Day 1 thru day 2 or until you are discharged from the hospital. Goals: ? Drink 4 to 6 ounces of fluid per hour. ? Aim for a total of 64 ounces of fluid daily. Add the following food/beverages to your diet: Clear broth or bouillon 100% no sugar added apple, cranberry, or grape juice. Dilute with 1 part juice and 1 part water. No citrus justice (i.e. organe juice, grapefruit juice, etc.) Limit to 8 ounces per or less per day. Tea (do not add milk) Coffee (do not add milk or creamer) Sugar-free gelatin Sugar-free popsicles Sugar-free flavored beverages (Crystal Light?, Sugar-Free Haider-Aid?, Propel?, PowerAde Zero?, Vitamin Water 10?, Fruit?0?, Sob? Lean?, etc.) Artificial sweetener of your choice Stage 2 When do I start this stage? Day 3 (or once you are discharged from the hospital) How long will I be on this stage? Day 3 thru Day 13 Goals: ? Drink 4 to 6 ounces of fluid per hour. ? Aim for a total of 64 ounces of fluid daily. ? Aim to meet protein goals with liquid protein supplements Add the following food/beverages to your diet: Protein supplements (thin, water-based supplement may be easier to digest at first while milk-based supplements may feel ``heavy?? and uncomfortable at first) Milk: 1%, skim, light soy milk, or lactose-free milk Discharge Attestations Time Spent in Discharge Care*: greater than 30 min Specific Discharge Activities: educating patient and educating and/or supporting family/caregiver Quality Metrics Clinical Quality Measures During this hospital stay, did patient experience: None Coding Level of Care Code Acute Chg FW DC note Diagnoses Status post laparoscopic sleeve gastrectomy Z98.84
[2020-12-25] MEDS: diphenhydrAMINE 12.5 mg/5 mL UDC 10 mL PO (11:29)
[2020-12-25] MEDS: acetaminophen 325 mg Tablet 650 MG PO (15:26)
--- NOTE | 2020-12-26 09:30 | PC.SOCIAL ---
discharge follow up call made, spoke with patient. pt reports she is having pain, is taking oxycodone every 6 hours. patient follow up appointments scheduled, those appointment dates and times given to patient. patient denies nausea. discussed incision care with patient, that she can shower 48 hours post op and leave dressings open to air. she is aware of diet plan, and is following as directed. discussed lifting and weight restrictions. denies questions of concerns.
== END 2020-12-25 18:00 | disposition home or self-care (01) ==
LOC: MEDSURG 14:27
PROVIDERS: Admitting Provider Surgery; PCP Nurse Practitioner Family; Visit Provider Surgery
PROC: 0DB64Z3 Excision of Stomach, Percutaneous Endoscopic Approach, Vertical (ICD-10-PCS; CPT 43775; principal; 2020-12-23 12:05)
DX: E66.01 Morbid (severe) obesity due to excess calories (principal); Z68.36 Body mass index [BMI] 36.0-36.9, adult; K21.9 Gastro-esophageal reflux disease without esophagitis; F41.9 Anxiety disorder, unspecified; F32.9 Major depressive disorder, single episode, unspecified
CPT/HCPCS: 43775; 36415; 74240; 80048; 85014; 85018; 88309; 96372; C9113; C9290; G0378; J0690; J1100; J1170; J1200; J1644; J2270; J2370; J2405; J2550; J2704; J2765; J3010; J3490; J7030; Q9963

== ENCOUNTER → 2021-04-06 12:00 | Outpatient (BNVA) | payer BC, SELFPAY | PROVIDERS: PCP Nurse Practitioner Family; Visit Provider Nurse Practitioner Family | DX: Z20.822 Contact with and (suspected) exposure to COVID-19 (principal) | CPT/HCPCS: 87426; 87635 ==

== ENCOUNTER 2021-04-15 12:12 | Outpatient (CLI) | payer BC, OTHER, SELFPAY ==
[2021-04-15 13:08] LABS: Basophils # 0.1 10^3/uL (0.0-0.1); Eosinophils # 0.2 10^3/uL (0.0-0.8); Eosinophils % 3.5 %; Hematocrit 40.1 % (37.0-47.0); Lymphocytes # 1.6 10^3/uL (0.8-4.8); Lymphocytes % 32.6 %; Mean Corpuscular HGB Conc 32.4 g/dL (30.0-36.0); Mean Corpuscular Hemoglobin 30.3 pg (28.0-34.0); Mean Corpuscular Volume 93.5 fl (81-99); Mean Platelet Volume 9.6 fL (7.4-10.4); Monocytes # 0.3 10^3/uL (0.2-0.9); Monocytes % 6.5 %; Neutrophils # 2.77 10^3/uL (1.8-7.7); Neutrophils % 56.4 %; Nucleated Red Blood Cells % 0 %; Platelet Count 275 10^3/cmm (130-400); Red Blood Count 4.29 10^6/uL (4.1-5.3); Red Cell Distribution Width 12.5 % (12.1-15.1); White Blood Count 4.9 10^3/uL (4.0-10.0)
[2021-04-15 13:58] LABS: Alanine Aminotransferase 15 U/L (0-33); Albumin Level 4.3 g/dL (3.5-5.2); Alkaline Phosphatase 99 IU/L (35-105); Anion Gap 17.2 (5-19); Aspartate Amino Transferase 15 U/L (0-32); Blood Urea Nitrogen 14 mg/dL (6-20); Carbon Dioxide 25 mmol/L (22-29); Chloride 100 mmol/L (98-107); Chol HDL Ratio 2.71 mg/dL (0.0-4.40); Cholesterol 230 mg/dL (0-200); Ferritin 202 ng/mL (15-150); Folate Level 11.9 ng/mL (4.8-37.3); Globulin 2.5 g/dL (1.3-4.6); Glomerular Filtration Rate 104.6 mL/min (90-130); Glucose 76 mg/dL (65-115); HDL Cholesterol 85 mg/dL (60-100); Iron 101 ug/dL (37-145); LDL Cholesterol Calculated 128 mg/dL (50-129); LDL HDL Ratio 1.51 RATIO (0.00-3.22); Magnesium 2.1 mg/dL (1.7-2.3); Osmolality Calculated 285 mOsm/kg (285-295); Percent Saturation 35.9 % (20-50); Potassium 4.2 mmol/L (3.5-5.1); Sodium 138 mmol/L (136-145); Total Bilirubin 0.5 mg/dL (0.15-1.2); Total Iron Binding Capacity 281 mcg/dl; Total Protein 6.8 g/dL (6.6-8.7); Triglycerides 85 mg/dL (0-150); Unsaturated Iron Binding 180 ug/dL (112-347); Vitamin B12 635 pg/mL (232-1245)
[2021-04-15 14:08] LABS: Calcium 9.1 mg/dL (8.5-10.5)
[2021-04-15 14:13] LABS: Parathyroid Hormone 42.8 pg/mL (15-65)
[2021-04-18 10:43] LABS: Vit D 1,25 (Oh)2, Total 58 pg/mL (18-72); Vit D2 1,25 (Oh)2 <8 pg/mL; Vit D3 1,25 (Oh)2 58 pg/mL
[2021-04-19 08:07] LABS: Zinc Level, Serum or Plasma 72 mcg/dL (60-130)
[2021-04-19 15:33] LABS: Vitamin B1(Thiamin) Plas/Ser <7 nmol/L (8-30)
== END 2021-04-15 12:13 | disposition home or self-care (01) ==
LOC: LAB 12:23
PROVIDERS: PCP Nurse Practitioner Family; Visit Provider Surgery
DX: Z98.84 Bariatric surgery status (principal)
CPT/HCPCS: 80053; 80061; 82310; 82607; 82652; 82728; 82746; 83540; 83550; 83735; 83970; 84425; 84443; 84630; 85025

== ENCOUNTER → 2021-05-13 08:59 | Outpatient (BNVA) | payer BC, OTHER, SELFPAY | PROVIDERS: PCP Nurse Practitioner Family; Visit Provider Nurse Practitioner Family | DX: Z20.822 Contact with and (suspected) exposure to COVID-19 (principal); R68.89 Other general symptoms and signs | CPT/HCPCS: 87426; 87804 ==

== ENCOUNTER 2021-07-28 08:41 | Outpatient (CLI) | payer BC, OTHER, SELFPAY ==
--- NOTE | 2021-07-28 08:45 | MM_ITS ---
WS: [id number] SCREENING 3D TOMOSYNTHESIS DIGITAL MAMMOGRAM WITH CAD HISTORY: SCREENING COMPARISON: 2020, 06/19/2019 and 06/14/2017 Bilateral CC and MLO views submitted. Computer aided detection analyzed. Breast composition: There are scattered areas of fibroglandular density. No suspicious masses, microc alcifications or architectural distortion. MM/[place] [id number] IMPRESSION: BI-RADS: 1-Negative FOLLOW UP: 1 Year Follow-up
== END 2021-07-28 08:42 | disposition home or self-care (01) ==
LOC: RADSHAW 08:43
PROVIDERS: PCP Nurse Practitioner Family; Visit Provider Nurse Practitioner Family
DX: Z12.31 Encounter for screening mammogram for malignant neoplasm of breast (principal)
CPT/HCPCS: 77063; 77067

== ENCOUNTER 2021-08-04 13:35 | Outpatient (CLI) | payer BC, OTHER, SELFPAY ==
[2021-08-04 14:13] LABS: Basophils % 0.8 %; Eosinophils # 0.2 10^3/uL (0.0-0.8); Hematocrit 36.9 % (37.0-47.0); Lymphocytes # 1.8 10^3/uL (0.8-4.8); Lymphocytes % 38.8 %; Mean Corpuscular HGB Conc 32.5 g/dL (30.0-36.0); Mean Corpuscular Hemoglobin 30.5 pg (28.0-34.0); Mean Corpuscular Volume 93.7 fl (81-99); Mean Platelet Volume 9.8 fL (7.4-10.4); Monocytes # 0.3 10^3/uL (0.2-0.9); Monocytes % 6.1 %; Neutrophils # 2.38 10^3/uL (1.8-7.7); Neutrophils % 50.3 %; Nucleated Red Blood Cells % 0 %; Platelet Count 276 10^3/cmm (130-400); Red Blood Count 3.94 10^6/uL (4.1-5.3); Red Cell Distribution Width 13.2 % (12.1-15.1); White Blood Count 4.7 10^3/uL (4.0-10.0)
[2021-08-04 14:44] LABS: Parathyroid Hormone 54.6 pg/mL (15-65)
[2021-08-04 14:53] LABS: Folate Level 14.1 ng/mL (4.8-37.3)
[2021-08-04 14:55] LABS: Alanine Aminotransferase 15 U/L (0-33); Albumin Level 4.1 g/dL (3.5-5.2); Alkaline Phosphatase 86 IU/L (35-105); Anion Gap 15.2 (5-19); Aspartate Amino Transferase 14 U/L (0-32); Blood Urea Nitrogen 11 mg/dL (6-20); Calcium 9.2 mg/dL (8.5-10.5); Carbon Dioxide 27 mmol/L (22-29); Chloride 101 mmol/L (98-107); Chol HDL Ratio 2.52 mg/dL (0.0-4.40); Cholesterol 219 mg/dL (0-200); Ferritin 197 ng/mL (15-150); Globulin 2.6 g/dL (1.3-4.6); Glomerular Filtration Rate 129.1 mL/min (90-130); Glucose 81 mg/dL (65-115); HDL Cholesterol 87 mg/dL (60-100); Iron 113 ug/dL (37-145); LDL Cholesterol Calculated 114 mg/dL (50-129); LDL HDL Ratio 1.31 RATIO (0.00-3.22); Magnesium 2.3 mg/dL (1.7-2.3); Osmolality Calculated 286 mOsm/kg (285-295); Percent Saturation 44.3 % (20-50); Potassium 4.2 mmol/L (3.5-5.1); Sodium 139 mmol/L (136-145); Thyroid Stimulating Hormone 1.32 uIU/mL (0.27-4.20); Total Bilirubin 0.4 mg/dL (0.15-1.2); Total Iron Binding Capacity 255 mcg/dl; Total Protein 6.7 g/dL (6.6-8.7); Triglycerides 88 mg/dL (0-150); Unsaturated Iron Binding 142 ug/dL (112-347); Vitamin B12 692 pg/mL (232-1245)
[2021-08-06 18:16] LABS: Zinc Level, Serum or Plasma 51 mcg/dL (60-130)
[2021-08-08 10:48] LABS: Vit D 1,25 (Oh)2, Total 58 pg/mL (18-72); Vit D2 1,25 (Oh)2 <8 pg/mL; Vit D3 1,25 (Oh)2 58 pg/mL
[2021-08-08 11:38] LABS: Vitamin B1(Thiamin) Plas/Ser 19 nmol/L (8-30)
== END 2021-08-04 13:36 | disposition home or self-care (01) ==
PROVIDERS: PCP Nurse Practitioner Family; Visit Provider Surgery
DX: Z98.84 Bariatric surgery status (principal)
CPT/HCPCS: 80053; 80061; 82310; 82607; 82652; 82728; 82746; 83540; 83550; 83735; 83970; 84425; 84443; 84630; 85025

== ENCOUNTER 2022-10-01 15:34 | Outpatient (CLI) | payer BC, OTHER, SELFPAY ==
--- NOTE | 2022-10-01 15:39 | MM_ITS ---
WS: [id number] BILATERAL 3D TOMOSYNTHESIS DIGITAL SCREENING MAMMOGRAPHY WITH CAD CLINICAL INFORMATION: SCREEN HISTORY: Screening mammogram. No current complaints. COMPARISON: July 28, 2021 TECHNIQUE: Bilateral CC and MLO views. FINDINGS: Scattered fibroglandular densities bilaterally. No suspicious focal mass, asymmetry, calcifications, or architectural distortion. No evidence of malignancy. MM/[place] [id number] IMPRESSION: BI-RADS: 1-Negative FOLLOW UP: 1 Year Follow-up Recommend return to annual screening mammography.
== END 2022-10-01 15:35 | disposition home or self-care (01) ==
PROVIDERS: PCP Nurse Practitioner Family; Visit Provider Nurse Practitioner Family
DX: Z12.31 Encounter for screening mammogram for malignant neoplasm of breast (principal)
CPT/HCPCS: 77063; 77067

== ENCOUNTER 2022-10-26 16:04 | Outpatient (CLI) | payer BC, OTHER, SELFPAY ==
--- NOTE | 2022-10-26 | XR_ITS ---
WS: [id number] EXAMINATION: XR hip RT 2-3V wo/w pel* [id number] REASON FOR EXAM: HIP PAIN, RIGHT COMPARISON: None available. ORDER DATE: 10/26/2022 4:20 PM TECHNIQUE: Frontal internal/external rotation views of the right hip were obtained. X-RAY FINDINGS: There are no fractures or dislocations. Normal motion with internal/external rotation is present. No degenerative changes. XR/XR hip RT 2-3V wo/w pel* [id number] IMPRESSION: 1. No fractures or dislocations of the right hip. 2. Normal motion with internal/external rotation.
== END 2022-10-26 16:05 | disposition home or self-care (01) ==
LOC: RAD 16:08
PROVIDERS: PCP Nurse Practitioner Family; Visit Provider Nurse Practitioner Family
DX: M25.551 Pain in right hip (principal)
CPT/HCPCS: 73502

== ENCOUNTER → 2022-11-24 14:31 | Outpatient (BNVA) | payer BC, OTHER, SELFPAY | PROVIDERS: PCP Nurse Practitioner Family; Referring Provider Nurse Practitioner Family; Visit Provider Specialist | DX: M70.61 Trochanteric bursitis, right hip | CPT/HCPCS: 73502 ==

== ENCOUNTER → 2024-03-26 09:57 | Outpatient (BNVA) | payer BC, OTHER, SELFPAY | PROVIDERS: PCP Nurse Practitioner Family; Visit Provider Nurse Practitioner Family | DX: R09.81 Nasal congestion (principal); J06.9 Acute upper respiratory infection, unspecified | CPT/HCPCS: 87400 ==

== ENCOUNTER 2024-10-01 15:27 | Outpatient (CLI) | payer BC, SELFPAY ==
--- NOTE | 2024-10-01 15:35 | MM_ITS ---
WS: [id number] BILATERAL 3D TOMOSYNTHESIS DIGITAL SCREENING MAMMOGRAPHY WITH CAD CLINICAL INFORMATION: SCREENING HISTORY: Screening mammogram. No current complaints. COMPARISON: 2022 TECHNIQUE: Bilateral CC and MLO views. FINDINGS: Scattered fibroglandular densities bilaterally. No suspicious focal mass, asymmetry, calcifications, or architectural distortion. No evidence of malignancy. MM/MM scr BI tomosynthesis [id number] IMPRESSION: DENSITY: There are scattered areas of fibroglandular density. BI-RADS: 1 - Negative. FOLLOW UP: 1 Year Follow-up Recommend return to annual screening mammography.
== END 2024-10-01 15:28 | disposition home or self-care (01) ==
LOC: RAD 15:28
PROVIDERS: PCP Nurse Practitioner Family; Visit Provider Nurse Practitioner Family
DX: Z12.31 Encounter for screening mammogram for malignant neoplasm of breast (principal); R92.323 Mammographic fibroglandular density, bilateral breasts
CPT/HCPCS: 77063; 77067